=== PATIENT | female | born 1980 | race Caucasian/White ===

== ENCOUNTER 2019-12-30 02:45 | Emergency (ER) | payer BC, SELFPAY ==
--- NOTE | ~2019-12-30 | CT_ITS ---
EXAMINATION: CT abdomen pelvis w con DATE: 12/30/2019 04:07 INDICATION: Right upper quadrant abdominal pain TECHNIQUE: Computed tomography (CT) of the abdomen and pelvis was performed without intravenous contr ast. Automated exposure control and iterative reconstruction technique were employed. Exam dose: 977 .80 mGy-cm total exam DLP. COMPARISON: None. FINDINGS: The lung bases are clear of infiltrate or consolidation. Normal heart size. No pericardial or pleural effusion. No hepatic, splenic, pancreatic, adrenal space-occupying mass lesion. Very small lower pole right robbin al cyst. Otherwise no renal mass lesion. Gallbladder is present. There is mild gallbladder wall thickening. There are gallstones. Acute cholec ystitis is not excluded. No bile duct or pancreatic duct dilatation. Normal caliber of the abdominal aorta. No intraperitoneal or retroperitoneal or pelvic mass lesion or adenopathy or ascites. Normal appendix. No bowel obstruction, bowel wall thickening or pneumatosis. Uterine enlargement with multiple uterine fibroids. Multiple left ovarian cystic lesions measuring up to 2 cm. Consider pelvic ultrasound for further evaluation as clinically appropriate. IMPRESSION: Cholelithiasis and gallbladder wall thickening; consider acute cholecystitis. Radionucli de hepatobiliary scan may be helpful for further evaluation for acute cholecystitis if clinically david ropriate Uterine enlargement, uterine fibroids Multiple left ovarian cystic lesions measuring up to 2 cm; consider pelvic ultrasound as clinically a ppropriate Reviewed, dictated and finalized at [facility]. Reviewed, dictated and finalized at [facility]. IMPRESSION: Cholelithiasis and gallbladder wall thickening; consider acute cho lecystitis. Radionuclide hepatobiliary scan may be helpful for further evaluati on for acute cholecystitis if clinically appropriate Uterine enlargement, uterine fibroids Multiple left ovarian cystic lesions measuring up to 2 cm; consider pelvic ultr asound as clinically appropriate
[2019-12-30 02:51] VITALS: BP 147/113; PULSE 85; RESP 15; TEMP 36.2; O2SAT 100
[2019-12-30 03:06] LABS: Basophils Absolute Auto 0.1 K/mm3 (0.0-0.1); Basophils Percent Auto 0.6 % (0.2-1.2); Eosinophils Absolute Auto 0.1 K/mm3 (0-0.3); Eosinophils Percent Auto 1.5 % (0-4.4); Hematocrit 40.5 % (37.0-47.0); Hemoglobin 13.4 g/dL (12.0-15.0); Immature Granulocyte Absolute 0.02 K/mm3 (0.00-0.031); Immature Granulocyte Percent A 0.2 % (0-0.5); Lymphocytes Absolute Auto 1.65 K/mm3 (0.9-3.2); Lymphocytes Percent Auto 17.6 % (18.3-44.2); Mean Corpuscular HGB Conc 33.1 g/dl (32-36); Mean Corpuscular Hemoglobin 28.1 pg (26-34); Mean Corpuscular Volume 84.9 fl (80-100); Mean Platelet Volume 9.7 fl (7.4-10.4); Monocytes Absolute Auto 0.4 K/mm3 (0.1-0.6); Monocytes Percent Auto 4.5 % (2.6-8.5); Neutrophils Absolute Auto 7.1 K/mm3 (1.3-6.7); Neutrophils Percent Auto 75.6 % (45.5-73.1); Platelet Count Result 285 k/mm3 (150-375); Red Blood Count 4.77 M/mm3 (4.2-5.4); Red Cell Distribution Width 12.2 % (11.5-14.5); White Blood Count 9.4 K/mm3 (4.5-10.0)
--- NOTE | 2019-12-30 03:10 | ED.ABDPAIN ---
HPI - Abdominal Pain General Chief Complaint: Abdominal Pain Stated Complaint: RUQ pain Time Seen by Provider: 12/30/19 02:50 Source: RN notes reviewed History of Present Illness HPI narrative: Patient presents emergency department from home for abdominal pain. Patient states the pain began tonight. The pain is located in the epigastric and right upper quadrant described as sharp and stabbing. States associated nausea and vomiting. Patient denies having fevers or chills chest pain shortness of breath diarrhea or any other symptoms. States that she did take Tums at home with minimal relief. Related Data Allergies Allergy/AdvReac Type Severity Reaction Status Date / Time No Known Allergies Allergy Unknown Unverified 03/10/15 19:23 Review of Systems Review of Systems: Narrative: Gen.: Denies fevers or chills ENT: Denies congestion Respiratory: Denies shortness of breath or cough CV: Denies chest pain or palpitations GI: See HPI denies burning, urgency, frequency or hematuria Musculoskeletal: Denies back pain or muscle pain Neuro: Denies numbness, tingling, weakness or focal weakness Skin: Denies rash Except as documented, all other systems reviewed and negative [facility] Past Medical History Medical History (Updated 12/30/19 @ 05:03 by Moises Rowland DO) Patient denies significant medical history Social History Social History (Updated 12/30/19 @ 03:11 by Moises Rowland DO) Smoking status: Never smoker Exam Narrative: Exam Narrative: APPEARANCE: No acute distress, nontoxic, resting in bed HEENT: Normocephalic, atraumatic, OMM RESPIRATORY: No respiratory distress, clear to auscultation bilaterally with no rhonchi wheezing or rales CARDIOVASCULAR: RRR s murmur ABDOMINAL: Soft, nondistended, tender palpation epigastric and right upper quadrant, no tenderness left upper quadrant, left lower quadrant right lower quadrant, no rebound or guarding MUSCULOSKELETAl: Moves all extremities. No clubbing, cyanosis or edema. NEURO: Awake and alert. Following commands, speech normal, no focal deficits SKIN:: Warm, dry. Normal Color PSYCHIATRIC: Normal affect/mood Course Course Emergency Course: Patient states that they are feeling much better at this time. States abdominal pain has resolved. Repeat abdominal exam shows the patient's abdomen to be soft and nontender. Discussed with patient results of workup and diagnosis. Discussed need for follow-up with primary care physician, reasons to return to the emergency department in proper use of medication. Patient understands and agrees to current treatment plan. Discussed gallstones need for follow-up as an outpatient Vital Signs Vital signs: Vital Signs Temperature 97.2 F L 12/30/19 02:51 Pulse Rate 85 12/30/19 02:51 Respiratory Rate 15 12/30/19 02:51 Blood Pressure 147/113 H 12/30/19 02:51 Pulse Oximetry 100 12/30/19 02:51 Temperature 97.2 F L 12/30/19 02:51 Pulse Rate 85 12/30/19 02:51 Respiratory Rate 15 12/30/19 02:51 Blood Pressure 147/113 H 12/30/19 02:51 Pulse Oximetry 100 12/30/19 02:51 MDM - Abdominal Pain MDM Narrative Medical decision making narrative: Patient's abdomen is soft without significant pain or signs of surgical abdomen on serial exams. Lab and x-ray evaluations are reviewed and patient is felt to be a reasonable candidate for outpatient management. Patient was instructed as to limitations of x-ray and laboratory evaluation and encouraged to return to ED or primary physician for repeat exam in 12 hours if continued or worsening pain. Patient's pain is improved. White count is within normal limits with normal LFTs. At this time feel likely cholelithiasis with no signs of cholecystitis will discharge with plan for follow-up and strict return precautions Lab Data Result diagrams: 12/30/19 02:59 12/30/19 02:59 Labs: Lab Results 12/30/19 12/30/19 12/30/19 Range/Units 02:59 02:59 03:00
[2019-12-30 03:11] LABS: Add Urine Microscopic? YES; Appearance Urine Clear (Clear); Bacteria Urine Trace /hpf; Bilirubin Urine Negative (Negative); Blood Urine 1+ (Negative); Color Urine Yellow (Yellow); Glucose Urine UA Negative (Negative); Ketones Urine Negative (Negative); Leukocyte Esterase Ur Negative LEU/UL (Negative); Mucus Urine Rare /lpf; Nitrate Urine Negative (Negative); Protein Urine Negative (Negative); RBC Urine 0-2 /hpf (0-2); Specific Grav Ur 1.023 (1.001-1.035); Squamous Epithelial Cell Urine Occasional /hpf (Few); Urobilinogen Urine Negative mg/dL (<2.0); WBC Urine 0-3 /hpf
[2019-12-30 03:22] LABS: Alanine Aminotransferase 13 U/L (4-35); Albumin Level 4.2 g/dL (3.5-5.1); Alkaline Phosphatase 71 U/L (38-126); Aspartate Amino Transferase 17 U/L (14-36); Bilirubin,Total 0.2 mg/dL (0.2-1.3); Blood Urea Nitrogen 13 mg/dL (7-17); Calcium 9.5 mg/dL (8.4-10.2); Carbon Dioxide 25 mmol/L (22-30); Chloride 104 mmol/L (98-107); Estimated Glomerular Filt Rate > 60; Glucose 128 mg/dL (65-105); Lipase 115 U/L (23-300); Potassium 4.3 mmol/L (3.4-5.0); Sodium 138 mmol/L (137-145)
[2019-12-30] MEDS: KETOROLAC 30 MG/ML VIAL (*BKC) IV PUSH (03:24)
[2019-12-30] MEDS: ONDANSETRON INJ 4 MG/2 ML VIAL IV PUSH (03:24)
[2019-12-30] MEDS: SODIUM CHLORIDE 0.9% IV 1,000 ML 999 ML IV CONT (03:25)
[2019-12-30 04:00] VITALS: BP 133/78; PULSE 79; RESP 18; O2SAT 98
--- NOTE | 2019-12-30 05:15 | PC.NURSE ---
Upon d/c pt requesting pain medication before leaving. ERP notified. RN instructed to not d/c patient.
[2019-12-30 05:35] VITALS: BP 140/100; PULSE 88; RESP 19; O2SAT 98
--- NOTE | 2019-12-30 05:35 | PC.NURSE ---
Pt states she wants to go home and does not want pain medication. ERP notified and Rn informed to d/c pt.
== END 2019-12-30 05:35 | disposition home or self-care (01) ==
PROVIDERS: Emergency Provider Emergency Medicine; PCP Internal Medicine
DX: K80.20 Calculus of gallbladder without cholecystitis without obstruction (principal)
CPT/HCPCS: 36415; 74177; 80053; 81001; 81025; 83690; 85025; 96361; 96374; 96375; 99284; J1885; J2405; J7030; Q9967

== ENCOUNTER 2020-02-05 15:29 | Outpatient (CLI) | payer BC, SELFPAY ==
[2020-02-05 16:35] LABS: Amylase 57 U/L (30-110)
== END 2020-02-05 15:30 | disposition home or self-care (01) ==
PROVIDERS: PCP Internal Medicine; Visit Provider Surgery
DX: Z01.818 Encounter for other preprocedural examination (principal); K80.20 Calculus of gallbladder without cholecystitis without obstruction
CPT/HCPCS: 36415; 82150; 86850; 86900; 86901

== ENCOUNTER 2020-02-08 00:34 | Outpatient (CLI) | payer BC, SELFPAY ==
[2020-02-08 18:35] LABS: SARS-CoV-2 RNA PCR Negative
== END 2020-02-08 00:35 | disposition home or self-care (01) ==
LOC: ANHCOVIDDT 00:34
PROVIDERS: PCP Internal Medicine; Visit Provider Surgery
DX: Z01.812 Encounter for preprocedural laboratory examination (principal); Z20.828 Contact with and (suspected) exposure to other viral communicable diseases
CPT/HCPCS: 87635; C9803; U0003

== ENCOUNTER 2020-02-11 01:08 | Day surgery (SDC) | payer BC, SELFPAY ==
[2020-01-28 09:20] VITALS: BMI 31.3
[2020-02-11] VITALS (9 sets, daily range): BP systolic 128–146; BP diastolic 73–89; PULSE 60–91; RESP 12–14; TEMP 36.2–37.4; O2SAT 95–100
--- NOTE | 2020-02-11 11:41 | WPDHPUPDATE1 ---
History and Physical Update Update Date/Time: 02/11/20 11:41 History and Physical has been reviewed, including an updated exam of the patient. There are NO changes in the patient's condition. Risks, benefits, and alternatives have been discussed and questions answered. Patient agrees to proceed with procedure.
[2020-02-11] MEDS: LACTATED RINGERS 1,000 ML 30 ML IV CONT ×2 (12:37→14:04)
--- NOTE | 2020-02-11 12:39 | WPDANESEPPF ---
Anes - Initial Pre Proc Eval Procedure: Operation Date: 02/11/20 13:30 Proposed Procedures p Laparoscopic Cholecystectomy, Possible Open - Chi Leavitt DO Date/Time: 02/11/20 12:39 Surgeon: Chi Leavitt DO Pre Op Diagnosis: Symptomatic Cholelithiasis Patient Data Age: 39 Gender: F Height: 5 ft 9 in Weight: 96.16 kg Allergies Allergy/AdvReac Type Severity Reaction Status Date / Time No Known Allergies Allergy Unknown Verified 01/28/20 09:21 Home Medications Medication Instructions Recorded Confirmed Type ibuprofen [IBU] 600 mg PO Q6H PRN #20 tablet 12/30/19 02/11/20 Rx ondansetron 4 mg PO Q6H PRN #10 tablet 12/30/19 01/28/20 Rx liothyronine 50 mcg tablet 50 mcg PO DAILY 01/22/20 02/11/20 History metformin 500 mg tablet 500 mg PO 3XW 01/22/20 02/11/20 History desogestrel-ethinyl estradiol 1 tablet PO DAILY 01/28/20 02/11/20 History [Apri] Patient hx anesthesia problems: post op nausea/vomiting Family hx anesthesia problems: none PMFSH Social History Social History Smoking status: Former smoker Tobacco type: cigarettes Additional smoking assessment comments: QUIT 13 YEARS AGO. SMOKED OCCASIONALLY FOR 5 YEARS. 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 Questions were solicited and answers provided to the satisfaction of the patient/family/POA.
[2020-02-11] MEDS: ACETAMINOPHEN 500 MG TABLET 1000 MG PO (12:41)
[2020-02-11] MEDS: KETOROLAC 15 MG/ML VIAL (*BKC) IV PUSH (12:43)
[2020-02-11] MEDS: SCOPOLAMINE 1.5 MG PATCH TRANSDERM (12:46)
[2020-02-11] MEDS: ceFAZolin 2 GM/D5W 50 ML 2 GM/50 ML BAG IVPB (13:04)
[2020-02-11] MEDS: BUPIVACAINE/EPINEPHRINE 0.5% 30 ML VIAL INFILTRATE (13:29)
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
[2020-02-11] MEDS: ONDANSETRON INJ 4 MG/2 ML VIAL IV PUSH (14:35)
[2020-02-11] MEDS: FAMOTIDINE 20 MG/2 ML VIAL IV PUSH (15:03)
[2020-02-11] MEDS: HALOPERIDOL LACTATE 5 MG/ML VIAL 1 MG IV PUSH (15:43)
== END 2020-02-11 16:32 | disposition home or self-care (01) ==
PROVIDERS: PCP Internal Medicine; Visit Provider Surgery
PROC: 0FT44ZZ Resection of Gallbladder, Percutaneous Endoscopic Approach (ICD-10-PCS; CPT 47562; principal; 2020-02-11 13:30)
DX: K80.10 Calculus of gallbladder with chronic cholecystitis without obstruction (principal); Z87.891 Personal history of nicotine dependence
CPT/HCPCS: 47562; 88304; A9270; J0330; J0690; J1100; J1200; J1630; J1885; J2250; J2405; J2704; J2710; J3010; J7030; J7120

== ENCOUNTER 2020-09-10 14:46 | Outpatient (CLI) | payer BC, SELFPAY | END 2020-09-10 14:47 | disposition home or self-care (01) | LOC: ANHCOVIDVC 14:46 | PROVIDERS: PCP Internal Medicine | DX: Z23 Encounter for immunization (principal) | CPT/HCPCS: 0001A; 91300 ==

== ENCOUNTER 2020-10-01 14:45 | Outpatient (CLI) | payer BC, SELFPAY | END 2020-10-01 14:46 | disposition home or self-care (01) | LOC: ANHCOVIDVC 14:45 | PROVIDERS: PCP Internal Medicine | DX: Z23 Encounter for immunization (principal) | CPT/HCPCS: 0002A; 91300 ==

== ENCOUNTER 2021-06-29 00:09 | Day surgery (SDC) | payer BC, SELFPAY ==
[2021-06-17 11:28] VITALS: BMI 31.7
--- NOTE | 2021-06-19 10:12 | PM.HPGS ---
History of Present Illness History of Present Illness Consent: Risks, benefits, and alternatives have been discussed and questions answered. Patient agrees to proceed with procedure. Chief complaint: rectal bleeding Narrative: Sally Norris is a 40 year old female Who was referred because of bright red blood in her stool. She sees it after a bowel movement, often on toilet tissue. Also her sister had a colonoscopy and apparently had polyps removed Review of Systems Review of Systems: All systems reviewed & are unremarkable except as noted in HPI and below PMFSH Past Medical History Medical History Bronchitis Overweight Patient denies significant medical history Thyroid disease Surgical History Surgical History History of cholecystectomy History of LEEP (loop electrosurgical excision procedure) of cervix complicating Family History Family History Father Hyperlipemia Brain tumor (benign) Mother Non-Hodgkin lymphoma Unknown Heart disease Hypertension Cancer Social History Social History Smoking packs per day: 0.5 Smoking cigarettes per day: 10.0 Years smoked: 5 Smoking pack-years: 2.50 Smoking status: Former smoker Tobacco type: cigarettes Additional smoking assessment comments: QUIT 13 YEARS AGO. SMOKED OCCASIONALLY FOR 5 YEARS. 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 Spiritual care concerns: No Meds Home Medications and Allergies Home Medications Medication Instructions Recorded Confirmed Type liothyronine 50 mcg tablet 50 mcg PO DAILY 01/22/20 06/29/21 History metformin 500 mg tablet 500 mg PO 3XW 01/22/20 06/29/21 History desogestrel-ethinyl estradiol 1 tablet PO DAILY 01/28/20 06/29/21 History [Apri] Allergies Allergy/AdvReac Type Severity Reaction Status Date / Time No Known Allergies Allergy Unknown Verified 06/29/21 06:31 Exam Resp: Auscultation: clear to auscultation bilaterally Cardio: Rate: regular rate Rhythm: regular rhythm GI: GI Palp: Yes Soft to palpation and No Tenderness to palpation present (GI) Assessment and Plan Assessment and plan (1) Blood in stool: Code(s): K92.1 - Melena Status: Acute Assessment and Plan: Colonoscopy with possible biopsy or polypectomy or cautery or injection of substances.
[2021-06-29 06:34] VITALS: BP 141/86; PULSE 72; RESP 18; TEMP 36.2; O2SAT 99
[2021-06-29] MEDS: LACTATED RINGERS 1,000 ML 150 ML IV CONT (06:48)
[2021-06-29 06:49] LABS: Glucose Point of Care 99 mg/dl (65-105)
--- NOTE | 2021-06-29 06:52 | P.PNAN_ITS ---
Anes - Initial Pre Proc Eval Procedure: Operation Date: 06/29/21 07:30 Proposed Procedures p Colonoscopy - Derian Spangler MD Date/Time: 06/29/21 06:52 Surgeon: Derian Spangler MD Pre Op Diagnosis: rectal bleeding Patient Data Age: 40 Gender: F Height: 1.75 m Weight: 89.7 kg Last Vital Signs Temp 36.2 C L 06/29/21 06:34 Pulse 72 06/29/21 06:34 Resp 18 06/29/21 06:34 BP 141/86 H 06/29/21 06:34 Pulse Ox 99 06/29/21 06:34 Allergies Allergy/AdvReac Type Severity Reaction Status Date / Time No Known Allergies Allergy Unknown Verified 06/29/21 06:31 Home Medications Medication Instructions Recorded Confirmed Type liothyronine 50 mcg tablet 50 mcg PO DAILY 01/22/20 06/29/21 History metformin 500 mg tablet 500 mg PO 3XW 01/22/20 06/29/21 History desogestrel-ethinyl estradiol 1 tablet PO DAILY 01/28/20 06/29/21 History [Apri] Laboratory Tests 06/29/21 06:44 POC Capillary Glucose 99 mg/dl mg/dl (65-105) Patient hx anesthesia problems: none Family hx anesthesia problems: none Results Review: All pre-operative results and documents have been reviewed as part of the pre-operative evaluation. [facility] Past Medical History Medical History (Updated 06/29/21 @ 06:52 by Goldy Pruitt MD) Bronchitis Overweight Patient denies significant medical history Thyroid disease Surgical History Surgical History (Updated 06/29/21 @ 06:52 by Goldy Pruitt MD) History of cholecystectomy History of LEEP (loop electrosurgical excision procedure) of cervix complicating Family History Family History Father Hyperlipemia Brain tumor (benign) Mother Non-Hodgkin lymphoma Unknown Heart disease Hypertension Cancer Social History Social History Smoking packs per day: 0.5 Smoking cigarettes per day: 10.0 Years smoked: 5 Smoking pack-years: 2.50 Smoking status: Former smoker Tobacco type: cigarettes Additional smoking assessment comments: QUIT 13 YEARS AGO. SMOKED OCCASIONALLY FOR 5 YEARS. 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 Informed Consent: The patient's anesthetic plan and its attendant risks and benefits were discussed with the patient/family/POA. Questions were solicited and answers provided to the satisfaction of the patient/family/POA.
[2021-06-29 07:46] VITALS: BP 123/77; PULSE 79; RESP 19; O2SAT 100
[2021-06-29 07:56] VITALS: BP 131/68; PULSE 73; RESP 17; O2SAT 100
[2021-06-29 08:06] VITALS: BP 132/85; PULSE 69; RESP 20; O2SAT 100
== END 2021-06-29 08:18 | disposition home or self-care (01) ==
PROVIDERS: PCP Internal Medicine; Visit Provider Internal Medicine Gastroenterology
PROC: 0DJD8ZZ Inspection of Lower Intestinal Tract, Via Natural or Artificial Opening Endoscopic (ICD-10-PCS; CPT 45378; principal; 2021-06-29 07:30)
DX: K92.1 Melena (principal); K57.30 Diverticulosis of large intestine without perforation or abscess without bleeding; K64.8 Other hemorrhoids; E07.9 Disorder of thyroid, unspecified; Z79.84 Long term (current) use of oral hypoglycemic drugs; Z87.891 Personal history of nicotine dependence
CPT/HCPCS: 45378; 82948; J2704; J7120

== ENCOUNTER 2021-09-06 18:01 | Emergency (ER) | payer BC, SELFPAY ==
[2021-09-06 18:10] VITALS: BP 151/81; PULSE 99; RESP 18; TEMP 36.7; O2SAT 99
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
== END 2021-09-06 18:38 | disposition home or self-care (01) ==
PROVIDERS: Emergency Provider Nurse Practitioner; PCP Internal Medicine
DX: J40 Bronchitis, not specified as acute or chronic (principal); J06.9 Acute upper respiratory infection, unspecified; T59.811A Toxic effect of smoke, accidental (unintentional), initial encounter; Z87.891 Personal history of nicotine dependence; E07.9 Disorder of thyroid, unspecified
CPT/HCPCS: 99213; G0463

== ENCOUNTER 2022-04-02 15:20 | Emergency (ER) | payer BC, SELFPAY ==
--- NOTE | 2022-04-02 15:22 | ED.URI ---
HPI - URI/Sore Throat General Stated Complaint: Sore Throat,Rt Ear Irritation Time Seen by Provider: 04/02/22 15:22 Source: patient Mode of arrival: ambulatory Limitations: no limitations History of Present Illness HPI Narrative: Ms. Felipe is a 41-year-old female patient presenting to the clinic today with complaints of sore throat and right ear pain times 3 days. She reports her right ear and throat started hurting today but she has had nasal congestion for the past 3 days. Denies any fever or chills. She denies any known exposure to anybody with COVID, flu, or strep MD elicited complaint: sore throat Related Data Home Medications Medication Instructions Recorded Confirmed cetirizine 10 mg tablet (Zyrtec) 10 mg PO DAILY 09/06/21 09/06/21 levonorgestrel-ethinyl estradiol 1 tablet PO DAILY 09/06/21 09/06/21 0.1 mg-20 mcg tablet (Sronyx) liothyronine 50 mcg tablet mcg 04/02/22 metformin 500 mg tablet mg 04/02/22 Allergies Allergy/AdvReac Type Severity Reaction Status Date / Time No Known Allergies Allergy Unknown Verified 04/02/22 15:22 Review of Systems Review of Systems: Pertinent positives per HPI. Patient denies any fever, chills, rash, headache, visual changes, dizziness, cough, shortness of breath, chest pain, palpitations, nausea, vomiting, diarrhea, constipation, abdominal pain, or any urinary issues. PMFSH Past Medical History Medical History Bronchitis Overweight Patient denies significant medical history Thyroid disease Surgical History Surgical History History of cholecystectomy History of LEEP (loop electrosurgical excision procedure) of cervix complicating Family History Family History Father Hyperlipemia Brain tumor (benign) Mother Non-Hodgkin lymphoma Unknown Heart disease Hypertension Cancer Social History Social History Smoking packs per day: 0.5 Smoking cigarettes per day: 10.0 Years smoked: 5 Smoking pack-years: 2.50 Smoking status: Former smoker Tobacco type: cigarettes Additional smoking assessment comments: QUIT 13 YEARS AGO. SMOKED OCCASIONALLY FOR 5 YEARS. 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 There is no relevant family history pertinent to the patient complaint. Exam Narrative: General: Well-developed, well nourished, in no apparent distress Head: Normocephalic, atraumatic Eyes: Pupils equally round and reactive to light bilaterally, EOM intact, sclera and conjunctive clear, no discharge, lids normal Ears: Left TMs intact and clear, right TM, mild bulging, dull, canals clear, no drainage, grossly hearing normal. Nose: Nares patent, clear nasal discharge, moderate inflammation, no sinus tenderness. Mouth: Oral pharynx without lesions or masses, good dentition, MMM. Postnasal drip, oropharynx red Neck: Supple, trachea midline, enlargement of anterior cervical nodes, no thyroid masses or goiter palpable. Cardio: Regular rate and rhythm, s1 and s2 normal, no murmur appreciated. Resp: Clear to auscultation bilaterally, no rhonchi, rales, wheezing or rubs Course Course Emergency Course: Portions of this record may have been created with voice recognition software. Level of Care: Express Care Visit Vital Signs Vital signs: Vital signs reviewed MDM - URI/Sore Throat MDM Narrative Medical decision making narrative: At the time of visit patient is resting comfortably on the exam table. Strep screen
[2022-04-02 15:27] VITALS: BP 147/90; PULSE 96; RESP 18; TEMP 36.7; O2SAT 100
[2022-04-02 15:38] VITALS: BP 147/90; PULSE 96; RESP 18; TEMP 36.7; O2SAT 100
== END 2022-04-02 15:58 | disposition home or self-care (01) ==
PROVIDERS: Emergency Provider Nurse Practitioner Family
DX: R09.82 Postnasal drip (principal); J06.9 Acute upper respiratory infection, unspecified; H69.81 Other specified disorders of Eustachian tube, right ear; Z87.891 Personal history of nicotine dependence
CPT/HCPCS: 87081; 87880; 99213; G0463

== ENCOUNTER 2022-11-18 16:18 | Outpatient (CLI) | payer BC, SELFPAY ==
--- NOTE | ~2022-11-18 | MM_ITS ---
EXAMINATION: MM screening [facility] HISTORY: Screening mammogram TECHNIQUE: Craniocaudal and mediolateral oblique 3-D tomosynthesis images were obtained and synthetic 2-D images were generated. CAD analysis was submitted and interpreted. COMPARISON: None, baseline BREAST PARENCHYMAL COMPOSITION: There are scattered areas of fibroglandular density. FINDINGS: No suspicious mass, calcification, or architectural distortion are identified in either latonya ast to suggest malignancy. IMPRESSION: 1. No mammographic evidence of malignancy. 2. Recommend routine screening mammography in one year. BI-RADS Category 1: Negative Reviewed, dictated and finalized at location A.
== END 2022-11-18 16:19 | disposition home or self-care (01) ==
PROVIDERS: Visit Provider Obstetrics & Gynecology
DX: Z12.31 Encounter for screening mammogram for malignant neoplasm of breast (principal)
CPT/HCPCS: 77063; 77067

== ENCOUNTER 2024-06-25 08:24 | Emergency (ER) | payer OTHER, SELFPAY ==
--- NOTE | 2024-06-25 08:27 | ED_ITS ---
HPI - Ear Problem General Chief complaint: Ear Stated complaint: ear aching Time Seen by Provider: 06/25/24 08:27 Source: patient Mode of arrival: ambulatory Limitations: no limitations History of Present Illness HPI Narrative: Sally is a 43-year-old female patient presenting to the clinic today with complaints of ear pain, nasal congestion, and sinus pressure x2 days. She reports did an at-home COVID test last night was negative. Reports that the nasal drainage is green. Denies any chest pain or shortness of breath. States sinus pressure is an 8/10 currently. Has been taking Tylenol cold Sinus Related Data Home Medications ?Medication ?Instructions ?Recorded ?Confirmed ?Last Taken ?Type levonorgestrel-ethinyl estradiol 1 tablet PO DAILY 09/06/21 10/20/23 Unknown History 0.1 mg-20 mcg tablet (Sronyx) cholecalciferol (vitamin D3) 62.5 mcg PO 02/04/23 10/20/23 Unknown History mcg (2,500 unit) capsule mecobalamin (vitamin B12) 5,000 mcg PO 02/04/23 10/20/23 Unknown History mcg disintegrating tablet Allergies Allergy/AdvReac Type Severity Reaction Status Date / Time benzonatate (From Tessalon AdvReac Mild Itching Verified 06/25/24 08:39 Darren) Review of Systems Review of Systems: Pertinent positives per HPI. Patient denies any fever, chills, rash, visual changes, dizziness, cough, shortness of breath, chest pain, palpitations, nausea, vomiting, diarrhea, constipation, abdominal pain, or any urinary issues. [facility] Past Medical History Medical History Goiter Hearing loss Hyperinsulinemia Endometriosis Diverticulosis Hypothyroidism Thyroid disease Surgical History Surgical History History of laparoscopy x3 for endometriosis History of cholecystectomy 01/2020 History of LEEP (loop electrosurgical excision procedure) of cervix complicating Family History Family History Father Hyperlipemia Brain tumor (benign) Mother Non-Hodgkin lymphoma Unknown Heart disease Hypertension Cancer Social History Social History (Reviewed 06/25/24 @ 08:28 by NICOL Alcantara Smoking packs per day: 0.5 Smoking cigarettes per day: 10.0 Years smoked: 5 Smoking pack-years: 2.50 Smoking status: Former smoker Tobacco type: cigarettes Additional smoking assessment comments: QUIT 13 YEARS AGO. SMOKED OCCASIONALLY FOR 5 YEARS. 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 There is no relevant family history pertinent to the patient complaint. Exam Narrative: General: Well-developed, well nourished, in no apparent distress Head: Normocephalic, atraumatic Eyes: Pupils equally round and reactive to light bilaterally, EOM intact, sclera and conjunctive clear, no discharge, lids normal Ears: TMs intact and clear, ear canals clear, no drainage, grossly hearing normal. Nose: Nares patent, green nasal discharge, mild inflammation, maxillary sinus tenderness. Mouth: Oral pharynx without lesions or masses, good dentition, MMM. Neck: Supple, trachea midline, no enlargement of anterior or posterior cervical nodes, no thyroid masses or goiter palpable. Cardio: Regular rate and rhythm, s1 and s2 normal, no murmur appreciated. Resp: Clear to auscultation bilaterally, no rhonchi, rales, wheezing or rubs Course Course Emergency Course: Portions of this record may have been created with voice recognition software. Level of Care: Express Care Visit Vital Signs Vital signs: Vital Signs Temperature 36.3 C L 06/25/24 08:35 Pulse Rate 97 06/25/24 08:35 Respiratory Rate 18 06/25/24 08:35 Blood Pressure 116/80 06/25/24 08:35 Pulse Oximetry 100 06/25/24 08:35 Oxygen Delivery Room Air 06/25/24 08:35 Temperature 36.3 C L 06/25/24 08:35 Pulse Rate 97 06/25/24 08:35 Respiratory Rate 18 06/25/24 08:35 Blood Pressure 116/80 06/25/24 08:35 Pulse Oximetry 100 06/25/24 08:35 Oxygen Delivery Room Air 06/25/24 08:35 Vital signs reviewed Medical Decision Making MDM Narrative Medical decision making narrative: At the time of visit patient is resting comfortably on the exam table. Patient appears to be nontoxic. Plan: I suspect patient has URI. Will send in prescription for prednisone for or congestion and sinus pressure. Supportive measures were discussed with the patient and they voiced understanding discharge instructions and agrees to treatment plan. Return precautions reviewed Differential Diagnosis Differential Diagnosis: Otitis media, otitis externa, eustachian tube dysfunction, cerumen impaction, upper respiratory infection, serous otitis Vital Signs Vital Signs: Vital Signs Temperature 36.3 C L 06/25/24 08:35 Pulse Rate 97 06/25/24 08:35 Respiratory Rate 18 06/25/24 08:35 Blood Pressure 116/80 06/25/24 08:35 Pulse Oximetry 100 06/25/24 08:35 Oxygen Delivery Room Air 06/25/24 08:35 Temperature 36.3 C L 06/25/24 08:35 Pulse Rate 97 06/25/24 08:35 Respiratory Rate 18 06/25/24 08:35 Blood Pressure 116/80 06/25/24 08:35 Pulse Oximetry 100 06/25/24 08:35 Oxygen Delivery Room Air 06/25/24 08:35 Discharge Plan Discharge Clinical Impression: URI (upper respiratory infection) Qualifiers: URI type: unspecified viral URI Qualified Code(s): J06.9 - Acute upper resp iratory infection, unspecified Patient Disposition: Home, Self-Care Condition: Stable Instructions: Antibiotic Form, Cold Symptoms (ED) Additional Instructions: Take prescription medications only as prescribed-prednisone Increase fluids and stay well hydrated Tylenol/motrin for pain/fever Flonase and OTC antihistamines as directed Vicks vapor rub to open sinuses Sinus rinses for congestion Cepacol spray, cough drops, throat lozenges, warm tea with honey/lemon, gargle salt water to soothe throat BRAT diet for diarrhea Clear liquids x 24 hours then advance as tolerated for nausea/vomiting Go to the ED if you develop a worsening in your condition- high fever not controlled by Tylenol or Motrin, dehydration, weakness, lethargy, shortness of breath, or chest pain. Follow up with your PCP in 3-5 days if symptoms persist. Patient Language: Nepali Prescriptions: New prednisone 20 mg tablet 40 mg PO DAILY 5 Days Qty: 10 0RF No Action levonorgestrel-ethinyl estrad [Sronyx] 0.1-20 mg-mcg tablet 1 tablet PO DAILY metformin 500 mg tablet 500 mg PO BID Qty: 180 1RF cholecalciferol (vitamin D3) 62.5 mcg (2,500 unit) capsule PO mecobalamin (vitamin B12) 5,000 mcg tablet,disintegrating PO liothyronine 50 mcg tablet 50 mcg PO BID Qty: 180 0RF Follow-up/Referrals: Lorie Rice PA-C [Primary Care Provider] - Time of Disposition: 08:42 Quality NIHSS Nursing Documentation ED NIHSS nursing documentation: reviewed/agree
[2024-06-25 08:35] VITALS: BP 116/80; PULSE 97; RESP 18; TEMP 36.3; O2SAT 100
--- OUTSIDE RECORDS SUMMARY | 2024-07-02 13:30 | XMS_ITS | Encounter Summary ---
Author Organization [facility] Address [address] [place] [address]. [place] [address] [place] [address] Care Team Providers Care Dry House Wheeler Name Role Phone Unavailable Primary Care Provider Unavailabl e Encounter Details Date Type Department Care Team (Late st Contact Info) Description 12/26/2013 Abstract [facility] [address] [place] [address] Frida Du MD [address] [place] [address] Social History Tobacco Use Types Packs/Day Years Used Date Smoking Tobacco: Never Assessed Comments Unknown Sex and Gender Information Value Date Recorded Sex Assigned at Not on file Legal Sex Female 4:28 PM CDT Gender Identity Not on file Sexual Orientation Not on file documented as of this encounter Plan of Treatment Not on file documented as of this encounter Visit Diagnoses Diagnosis Routine general medical examination at a health care facility documented in this encounter
--- OUTSIDE RECORDS SUMMARY | 2024-07-02 13:30 | XMS_ITS | Clinical Summary ---
Author Organization [facility] Address [address] [place] [address]. [place], [place] [id number] [place] [address] Care Team Providers Care Weekend Receptionist Name Role Phone Unavailable Primary Care Provider Unavailabl e Social History Tobacco Use Types Packs/Day Years Used Date Smoking Tobacco: Never Assessed Comments Unknown Sex and Gender Information Value Date Recorded Sex Assigned at Not on file Legal Sex Female 4:28 PM CDT Gender Identity Not on file Sexual Orientation Not on file Plan of Treatment Health Maintenance Due Date Last Done Comments Cervical Cancer Screening Pa p Smear (Age 30 to 64) Every 3 Years 1979 Annual Physical 1982 Hepatitis C 1997 DTaP, Tdap and Td Vaccines ( 1 - Tdap) 1998 Hepatitis B Vaccines (1 of 3 - 19+ 3-dose series) 1998 Cervical Cancer Screening Pa p with HPV Testing (Age 30 to 64) Every 5 Years 2009 Cervical Cancer Screening with HPV 2009 Mammogram Screening 2019 COVID-19 Vaccine (2023-2 5 season) 2024 Influenza Adult (#1) 2024 HPV Vaccines Aged Out No longer eligi ble based on patient's age to complete this topic Meningococcal Vaccine Aged Out No suha jazzmine eligible based on patient's age to complete this topic Pneumococcal Vaccine: Pediat rics (0 to 5 Years) and At-Risk Patients (6 to 64 Years) Aged Out No longer eligible b ased on patient's age to complete this topic RSV Immunizations Under 20 Months Aged Out No longer eligible based on patient's age to complete this topic
--- OUTSIDE RECORDS SUMMARY | 2024-07-02 13:30 | XMS_ITS | Encounter Summary ---
Author Organization [facility] Address [address] [place] [address]. [place], [place] [address] [place] [address] Care Team Providers Care Test Engineering Intern Name Role Phone Unavailable Primary Care Provider Unavailabl e Encounter Details Date Type Department Care Team (Late st Contact Info) Description 08/08/2007 Abstract [facility] CONVERSION [address] [place], [place] [id number] [place] [address] [id number] Social History Tobacco Use Types Packs/Day Years Used Date Smoking Tobacco: Never Assessed Comments Unknown Sex and Gender Information Value Date Recorded Sex Assigned at Not on file Legal Sex Female 4:28 PM CDT Gender Identity Not on file Sexual Orientation Not on file documented as of this encounter Plan of Treatment Not on file documented as of this encounter Visit Diagnoses Not on filedocumented in this encounter
--- OUTSIDE RECORDS SUMMARY | 2024-07-02 13:30 | XMS_ITS | Encounter Summary ---
Author Organization [facility] Address [address] [place] [address]. [place], [place] [address] [place] [address] Care Team Providers Care Line Analyst Name Role Phone Unavailable Primary Care Provider Unavailabl e Encounter Details Date Type Department Care Team (Late st Contact Info) Description 09/04/2007 Abstract [facility] CONVERSION [address] [place], [place] [id number] Thaddeus Hamm MD [facility] [place], [place] [id number] Social History Tobacco Use Types Packs/Day Years [...]
--- OUTSIDE RECORDS SUMMARY | 2024-07-02 13:30 | XMS_ITS | Encounter Summary ---
Author Organization [facility] Address [address] [place] [address]. [place], [place] [address] [place] [address] Care Team Providers Care Piano Machine Operator Name Role Phone Unavailable Primary Care Provider Unavailabl e Encounter Details Date Type Department Care Team (Late st Contact Info) Description 02/11/2004 Abstract [facility] CONVERSION [address] [place], [place] [phone] Thaddeus Hamm MD [facility] [place], [place] [phone] Social History Tobacco Use Types Packs/Day Years [...]
--- OUTSIDE RECORDS SUMMARY | 2024-07-02 13:30 | XMS_ITS | Encounter Summary ---
Author Organization [facility] Address [address] [place] [address]. [place] [address] [place] [address] Care Team Providers Care Bell Hole Digger Name Role Phone Unavailable Primary Care Provider Unavailabl e Encounter Details Date Type Department Care Team (Late st Contact Info) Description 10/07/2010 Abstract [facility] Emergency Room [address] [place] [address] Henrry Padilla MD [address] [address] Social History Tobacco Use Types Packs/Day Years Used Date Smoking Tobacco: Never Assessed Comments Unknown Sex and Gender Information Value Date Recorded Sex Assigned at Not on file Legal Sex Female 4:28 PM CDT Gender Identity Not on file Sexual Orientation Not on file documented as of this encounter Plan of Treatment Not on file documented as of this encounter Visit Diagnoses Diagnosis Mittelschmerz documented in this encounter
--- OUTSIDE RECORDS SUMMARY | 2024-07-02 13:30 | XMS_ITS | Encounter Summary ---
Author Organization [facility] Address [address] [place] [address]. [place] [address] [place] [address] Care Team Providers Care Plastic Frame Inserter Name Role Phone Unavailable Primary Care Provider Unavailabl e Encounter Details Date Type Department Care Team (Late st Contact Info) Description 07/13/2014 Abstract [facility] Emergency Room [address] [place], [place] [phone] Susy Mann MD [address] [place] [address] Social History Tobacco Use Types Packs/Day Years Used Date Smoking Tobacco: Never Assessed Comments Unknown Sex and Gender Information Value Date Recorded Sex Assigned at Not on file Legal Sex Female 4:28 PM CDT Gender Identity Not on file Sexual Orientation Not on file documented as of this encounter Plan of Treatment Not on file documented as of this encounter Visit Diagnoses Diagnosis Urinary tract infection Urinary tract infection, site not specified documented in this encounter
--- OUTSIDE RECORDS SUMMARY | 2024-07-02 13:30 | XMS_ITS | Encounter Summary ---
Author Organization [facility] Address [address] [place] [address]. [place], [place] [address] [place] [address] Care Team Providers Care Engineer System Administrator Name Role Phone Unavailable Primary Care Provider Unavailabl e Encounter Details Date Type Department Care Team (Late st Contact Info) Description 08/05/2008 Abstract [facility] CONVERSION [address] [place], [place] [phone] Lorie Rice, HALLE [address] [place] [address] Social History Tobacco Use Types Packs/Day Years [...]
--- OUTSIDE RECORDS SUMMARY | 2024-07-02 13:31 | XMS_ITS | Encounter Summary ---
Author Organization [facility] Address [address] [place] [address] Care Team Providers Care Associate Entertainment Editor Name Role Phone No, Physician Primary Care Provider Reason for Visit * Diagnostic Imaging (Routine) - Closed Specialty Diagnoses / Procedures Referred By Contac t Referred To Contact Diagnoses Acute pain of left shoulder Procedures XR Shoulder Left 2 or More Views Wanda Mendoza, CARMENCITA [address] [facility] [address], [place] [address] Phone: tel: fax: [facility] [id number] [place] [phone] Referral ID Status Reason Start Date Expiration Date Visits Re quested Visits Authorized [id number] Closed 03/26/2024 04/25/2025 1 1 Encounter Details Date Type Department Care Team (Latest Contact Info) Description 03/26/2024 1:45 PM CDT Ancillary Procedure [facility] Imaging [address] [place] [address] Acute pain of left shoulder Social History Tobacco Use Types Packs/Day Years Used Date Smoking Tobacco: Never Smokeless Tobacco: Never Comments Unknown Sex and Gender Information Value Date Recorded Sex Assigned at Not on file Legal Sex Female 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 Gender Identity Not on file Sexual Orientation Not on file documented as of this encounter Plan of Treatment Not on file documented as of this encounter Procedures Procedure Name Priority Date/Time Associated Diagnosis Comments XR SHOULDER LEFT 2 OR MORE VIEWS Schedule Routine, Read Routine (OP Routine) 03/26/2024 2:02 PM CDT Acute pain of left shoulder documented in this encounter Results * XR Shoulder Left 2 or More Views (03/26/2024 2:02 PM CDT) Anatomical Region Laterality Modality Upper Extremities, Shoulder Left Comp uted Radiography 03/26/2024 2:41 PM CDT Impressions 03/26/2024 2:41 PM CDT Mild left acromioclavicular osteoarthritis. Electronically signed by: Man Marte M.D. Narrative 03/26/2024 2:41 PM CDT EXAMINATION: XR SHOULDER LEFT 2 OR MORE VIEWS HISTORY: shoulder pain, limited ROM COMPARISON: None available FINDINGS: Mild left acromioclavicular osteoarthritis. ??Normal left glenohumeral joint space. ??No acute fracture or subluxation. Procedure Note Man Marte MD - 03/26/2024 EXAMINATION: XR SHOULDER LEFT 2 OR MORE VIEWS HISTORY: shoulder pain, limited ROM COMPARISON: None available FINDINGS: Mild left acromioclavicular osteoarthritis. Normal left glenohumeral joint space. No acute fracture or subluxation. IMPRESSION: Mild left acromioclavicular osteoarthritis. Electronically signed by: Man Marte M.D. Wanda Mendoza WELLNESS SPA MANAGER IMG XR PROCEDURES Final Result documented in this encounter Visit Diagnoses Diagnosis Acute pain of left shoulder documented in this encounter Care Teams Associate Entertainment Editor Relationship Specialty Start Date End Date No, Physician PCP - General 03/26/24 documented as of this encounter
--- OUTSIDE RECORDS SUMMARY | 2024-07-02 13:31 | XMS_ITS | Encounter Summary ---
Author Organization [facility] Facility Care Team Providers Care School Standards Coach Name Role Phone Unavailable Primary Care Provider Unavailabl e Encounter Details Date Type Department Care Team (Late st Contact Info) Description 04/03/2013 - 04/03/2013 11:59 PM CDT Hospital Encounter [facility] Mendosa MD [address] [address] Nontoxic multinodular goiter Social History Tobacco Use Types Packs/Day Years Used Date Smoking Tobacco: Never Assessed Comments Unknown Sex and Gender Information Value Date Recorded Sex Assigned at Not on file 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 MARIPOSA CARSON FINAL REPORT The radiology attending physician has personally reviewed this study, and has reviewed and/or edited this written report and agrees with it. ACC# ??Date Time ??Exam [id number] Apr 03, 2013 10:19:00 [id number] Neck Ultrasound EXAMINATION: ?THYROID SONOGRAM HISTORY: 32-year-old female with multinodular goiter. FINDINGS: The thyroid is mildly enlarged in size. ??The right lobe measures 1.5 x 2.4 x 4.8 cm ??and the left lobe measures 1.7 x 1.9 x 4.7 cm. ??There are multiple nodules in both lobes of the thyroid. ??The largest on the right measures 3 x 4 x 5 mm and is located in the mid lobe. ??It is predominantly cystic with a small solid component. ??The largest on the left measures 6 x 10 x 11 mm and is located in the mid lobe. ??It is hypoechoic and is predominantly solid with a few internal echogenic foci. The borders are somewhat ill-defined. ??Other scattered nodules are present bilaterally. ?? IMPRESSION: 1. Indeterminate left mid thyroid nodule as described above. Conservative management would be by ultrasound followup in 6 months. A more aggressive approach by fine needle aspiration may also be considered. ?? Requested By: SOBIA FLORES M.D. Dictated By: ?? MARIPOSA CARSON ??on Mar ??2012 10:28A This document has been electronically signed by: NEIL VELASQUEZ M.D. on Apr 03 2013 10:30A Procedure Note Provider, MD Les - 10/30/2016 NEIL VELASQUEZ M.D. MARIPOSA CARSON FINAL REPORT The radiology attending physician has personally reviewed this study, and has reviewed and/or edited this written report and agrees with it. ACC# Date Time Exam [id number] Apr 03, 2013 10:19:00 [id number] Neck Ultrasound EXAMINATION: THYROID SONOGRAM HISTORY: 32-year-old female with multinodular goiter. FINDINGS: The thyroid is mildly enlarged in size. The right lobe measures 1.5 x 2.4 x 4.8 cm and the left lobe measures 1.7 x 1.9 x 4.7 cm. There are multiple nodules in both lobes of the thyroid. The largest on the right measures 3 x 4 x 5 mm and is located in the mid lobe. It is predominantly cystic with a small solid component. The largest on the left measures 6 x 10 x 11 mm and is located in the mid lobe. It is hypoechoic and is predominantly solid with a few internal echogenic foci. The borders are somewhat ill-defined. Other scattered nodules are present bilaterally. IMPRESSION: 1. Indeterminate left mid thyroid nodule as described above. Conservative management would be by ultrasound followup in 6 months. A more aggressive approach by fine needle aspiration may also be considered. Requested By: SOBIA FLORES M.D. Dictated By: MARIPOSA CARSON on Apr 03 2013 10:28A This document has been electronically signed by: NEIL VELASQUEZ M.D. on Apr 03 2013 10:30A us Historical Provider MD [facility] US PROCEDURES Final R esult documented in this encounter Visit Diagnoses Diagnosis Nontoxic multinodular goiter documented in this encounter
--- OUTSIDE RECORDS SUMMARY | 2024-07-02 13:31 | XMS_ITS | Clinical Summary ---
Author Organization [facility] [address] [address] Address [address] [place] [address] Care Team Providers Care Tire Building Supervisor Name Role Phone No, Physician Primary Care Provider [phone] Allergies No known active allergies Medications thyroid (ARMOUR THYROID) 90 mg tablet Take 1 tablet (90 mg total) by mouth daily Active metFORMIN (GLUCOPHAGE) 500 mg tablet Take 1 tablet (500 mg total) by mouth 2 (two) times a day with meals Active cyclobenzaprine (FLEXERIL) 5 mg tabletIndication s:Acute pain of left shoulder Take 1 tablet (5 mg total) by mouth 3 (three) times a day as needed for muscle spasms 30 tablet 03/26/2024 Active Active Problems Problem Noted Date Diagnosed Date Chronic infection of sinus 01/22/2013 Endometriosis 12/01/2012 Overview (10/07/2017): Description: abdominal, diaphragmatic Non-toxic multinodular goiter 12/01/2012 Fatigue 12/01/2012 Abnormal weight gain 12/01/2012 Surgical History Surgery Date Site/Laterality Comments [place] EXPLORATORY LAPAROTOMY CELIOTOMY W/WO BIOPSY SPX Exploratory Laparotomy - endometriosis (Added by TW Conv) CHOLECYSTECTOMY 2019 Medical History Medical History Date Comments Chronic sinusitis Sinusitis - re current (Added by TW Conv) Hypothyroidism Endometriosis Family History Medical History Relation Name Comments Cancer Other Cancer - mother at age 54 (Added by TW Conv) Heart disease Other Heart Disease - paternal grandparents and maternal grandparents (Added by TW Conv) Hypertension Other Hypertension - paternal grandparents and maternal grandparents (Added by TW Conv) Thyroid disease Other Thyroid Diso rder - maternal grandmother - hypothyroidism (Added by TW Conv) Relation Name Status Comments Other Social History Tobacco Use Types Packs/Day Years Used Date Smoking Tobacco: Never Smokeless Tobacco: Never Tobacco Cessation:Counseling Given: Not Answered Comments Unknown Sex and Gender Information Value Date Recorded Sex Assigned at Not on file 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 Gender Identity Not on file Sexual Orientation Not on file Obstetrics History Last Filed Vital Signs Vital Sign Reading Time Taken Comments Blood Pressure 118/87 03/26/2024 1:14 PM CDT Pulse 83 03/26/2024 1:14 PM CDT Temperature - - Respiratory Rate 18 03/26/2024 1:14 PM CDT Oxygen Saturation 98% 03/26/2024 1:14 PM CDT Inhaled Oxygen Concentration - - Weight 106.5 kg (234 lb 12.8 oz) 03/26/2024 1:14 PM CDT Height 174.6 cm (5' 8.75 ) 01/22/2013 8:36 AM CD T Body Mass Index - - Plan of Treatment Health Maintenance Due Date Last Done Comments Breast Cancer Screening-Mammogram 1979 Cervical Cancer Screening 1979 Depression Screening 1979 Hepatitis C Screening 1979 DTaP/Tdap/Td Vaccine (1 - Tdap) 1990 Varicella Vaccines (1 of 2 - 13+ 2-dose series) 1992 Hepatitis B Screening 1997 Regular Well Visit/Exam 18-64 1997 Covid-19 Vaccine (3 - 2023-2 5 season) 2024 10/01/2020, 09/10/2020 Influenza Vaccine (#1) 2024 HPV Vaccines Aged Out No longer eligi ble based on patient's age to complete this topic Pneumococcal vaccine <65 Aged Out No longer eligible based on patient's age to complete [place] [address] [employer]IG[employer] C[employer] Care Teams Tire Building Supervisor Relationship Specialty Start Date End Date No, Physician PCP - General 03/26/24
--- OUTSIDE RECORDS SUMMARY | 2024-07-02 13:31 | XMS_ITS | Encounter Summary ---
Author Organization 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 RUTH DOMINGUEZ M.D. FINAL REPORT The radiology attending physician has personally reviewed this study, and has reviewed and/or edited this written report and agrees with it. ACC# ??Date Time ??Exam [id number] Feb 19, 2013 08:11:[id number] Maxillofacial w/o cont EXAMINATION: ?Maxillofacial CT scan without contrast. HISTORY: ??Chronic sinusitis. TECHNIQUE: Noncontrast high resolution CT of the maxillofacial region was performed in the axial plane. Sagittal and coronal reconstructions were performed by the technologist and sent to the workstation for review. Comparison: ??None available. FINDINGS: The airway is normal. ??Within the maxilla and midface, no areas of bony erosion or fractures are identified. ?? The frontal sinuses are normal. The ethmoid sinuses are normal. The maxillary sinuses are normal. Minimal mucosal thickening is seen in the left sphenoid sinus. The right sphenoid sinus is clear. The osteomeatal units are open bilaterally. The nasal septum is at midline.. The mandible is normal without fractures. The orbits are normal. Limited view of the frontal lobes is normal. The limited views of the base of the skull and the temporal bones are normal. Limited views show that the cervical spine is in the normal anatomic alignment. Visualized vertebral bodies are normal height without compression fractures. The craniocervical junction is normal. IMPRESSION: ?? 1. Minimal mucosal thickening in left sphenoid sinus. Otherwise normal maxillofacial CT exam. Requested By: SANJAY YOUNG M.D. Dictated By: ?? RUTH DOMINGUEZ M.D. ??on Feb 19 2013 11:05A This document has been electronically signed by: SALLY GARCIA M.D. on Feb 19 2013 ??1:03P Procedure Note Provider, MD Les - 10/30/2016 Nikhil ARCE M.D. FINAL REPORT The radiology attending physician has personally reviewed this study, and has reviewed and/or edited this written report and agrees with it. ACC# Date Time Exam [id number] Feb 19, 2013 08:11:[id number] Maxillofacial w/o cont EXAMINATION: Maxillofacial CT scan without contrast. HISTORY: Chronic sinusitis. TECHNIQUE: Noncontrast high resolution CT of the maxillofacial region was performed in the axial plane. Sagittal and coronal reconstructions were performed by the technologist and sent to the workstation for review. Comparison: None available. FINDINGS: The airway is normal. Within the maxilla and midface, no areas of bony erosion or fractures are identified. The frontal sinuses are normal. The ethmoid sinuses are normal. The maxillary sinuses are normal. Minimal mucosal thickening is seen in the left sphenoid sinus. The right sphenoid sinus is clear. The osteomeatal units are open bilaterally. The nasal septum is at midline.. The mandible is normal without fractures. The orbits are normal. Limited view of the frontal lobes is normal. The limited views of the base of the skull and the temporal bones are normal. Limited views show that the cervical spine is in the normal anatomic alignment. Visualized vertebral bodies are normal height without compression fractures. The craniocervical junction is normal. IMPRESSION: 1. Minimal mucosal thickening in left sphenoid sinus. Otherwise normal maxillofacial CT exam. Requested By: SANJAY YOUNG M.D. Dictated By: RUTH DOMINGUEZ M.D. on Feb 19 2013 11:05A This document has been electronically signed by: SALLY GARCIA M.D. on Feb 19 2013 1:03P us Historical Provider MD [facility] CT PROCEDURES Final R esult documented in this encounter Visit Diagnoses Diagnosis Chronic sinusitis Unspecified sinusitis (chronic) documented in this encounter
--- OUTSIDE RECORDS SUMMARY | 2024-07-02 13:31 | XMS_ITS | Encounter Summary ---
Author Organization [facility] Address [address] [place] [address] Care Team Providers Care Lamp Shades Supervisor Name Role Phone No, Physician Primary Care Provider [phone] Reason for Referral * Diagnostic Imaging (Routine) - Closed Specialty Diagnoses / Procedures Referred By Contmelquiades t Referred To Contact Diagnoses Acute pain of left shoulder Procedures XR Shoulder Left 2 or More Views Wanda Mendoza NP [address] [facility] [facility] [address], [place] [address] Phone: tel: fax: [facility] - [address] [address] Referral ID Status Reason Start Date Expiration Date Visits Re quested Visits Authorized [id number] Closed 03/26/2024 04/25/2025 1 1 Reason for Visit * Reason Comments Shoulder Pain Left shoulder pain, pain started yesterday, no prior injury, difficulty lifting, pain scale (10) with movement Encounter Details Date Type Department Care Team (Late st Contact Info) Description 03/26/2024 1:00 PM CDT Office Visit [facility] at [address] [place] [address] [place] [address] Wanda Mendoza NP [address] [facility] [address] [place] [address] Acute pain of left shoulder (Primary Dx) Social History Tobacco Use Types Packs/Day Years Used Date Smoking Tobacco: Never Smokeless Tobacco: Never Tobacco Cessation:Counseling Given: Not Answered Comments Unknown Sex and Gender Information Value Date Recorded Sex Assigned at Not on file 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 Gender Identity Not on file Sexual Orientation Not on file documented as of this encounter Last Filed Vital Signs Vital Sign Reading Time Taken Comments Blood Pressure 118/87 03/26/2024 1:14 PM CDT Pulse 83 03/26/2024 1:14 PM CDT Temperature - - Respiratory Rate 18 03/26/2024 1:14 PM CDT Oxygen Saturation 98% 03/26/2024 1:14 PM CDT Inhaled Oxygen Concentration - - Weight 106.5 kg (234 lb 12.8 oz) 03/26/2024 1:14 PM CDT Height - - Body Mass Index - - documented in this encounter Ordered Prescriptions Prescription Sig Dispense Quantity Refills Last Filled Start Date End Date cyclobenzaprine (FLEXERIL) 5 mg tabletIndications: Acute pain of left shoulder Take 1 tablet (5 mg total) by mouth 3 (three) times a day as needed for muscle spasms 30 tablet 03/26/2024 methylPREDNISolone (MEDROL DOSEPACK) 4 mg DosepackIndication s:Acute pain of left shoulder Take as directed on package. 21 tablet 03/26/2024 4 documented in this encounter Progress Notes * Wanda Mendoza NP - 03/26/2024 1:00 PM CDT Images from the original note were not included. Patient ID: Sally Norris is a 43 y.o. female Chief Complaint Patient presents with Shoulder Pain Left shoulder pain, pain started yesterday, no prior injury, difficulty lifting, pain scale (10) with movement HPI: Going to chiropractor. Thought that she had R shoulder tendinitis as well as elbow. Left shoulder pain-she reports that she had been lifting grandchildren. Had been vaccuuming her home. No other known reasoning for exacerbation. She reports limited ROM. Spouse had to wash house. She reports that she had been moving concrete over the summer, but this pain is significantly worse. Shoulder Pain The pain is present in the left shoulder. This is a new problem. The current episode started yesterday. There has been no history of extremity trauma. The problem occurs constantly. The pain is at a severity of 10/10. Associated symptoms include an inability to bear weight, joint swelling (with some warmth, into the upper brachial region) and a limited range of motion. Pertinent negatives includeno numbness or tingling. The symptoms are aggravated by activity. She has tried NSAIDS (aleve 3 at bedtime last night, 2 tabs this am) for the symptoms. The treatment provided no relief. Patient Active Problem List Diagnosis Endometriosis Non-toxic multinodular goiter Fatigue Abnormal weight gain Chronic infection of sinus No Known Allergies Current Outpatient Medications on File Prior to Visit Medication Sig Dispense Refill metFORMIN (GLUCOPHAGE) 500 mg tablet Take 1 tablet (500 mg total) by mouth 2 (two) times a day withmeals thyroid (ARMOUR THYROID) 90 mg tablet Take 1 tablet (90 mg total) by mouth daily No current facility-administered medications on file prior to visit. Review of Systems Musculoskeletal: Positive for arthralgias and joint swelling. Neurological: Negative for tingling and numbness. All other systems reviewed and are negative. Vitals BP 118/87 (BP Location: Right arm, Patient Position: Sitting) Pulse 83 Resp 18 Wt 106.5 kg (234 lb 12.8 oz) SpO2 98% Physical Exam Vitals reviewed. Constitutional: General: She is awake. She is not in acute distress. Appearance: Normal appearance. She is well-developed. Cardiovascular: Rate and Rhythm: Normal rate and regular rhythm. Heart sounds: Normal heart sounds. Pulmonary: Effort: Pulmonary effort is normal. Breath sounds: Normal breath sounds. Musculoskeletal: Arms: Neurological: Mental Status: She is alert and oriented to person, place, and time. Psychiatric: Behavior: Behavior is cooperative. Assessment/Plan Diagnoses and all orders for this visit: Acute pain of left shoulder (Primary) - methylPREDNISolone (MEDROL DOSEPACK) 4 mg Dosepack; Take as directed on package. - cyclobenzaprine (FLEXERIL) 5 mg tablet; Take 1 tablet (5 mg total) by mouth 3 (three) times a dayas needed for muscle spasms - XR Shoulder Left 2 or More Views; Future Strongly suspicious for bursitis, although RTC could be culprit. As needed, may follow-up with ortho for management Will start medrol as she has not had improvement with aleve 660 and 440. Also, due to spasm, will start on flexeril as there is most likely some component of cervical/trap spasm causing this. Dr. Reyes, who has offices in [place] and [place] may be an option [phone] Con't ice/heat rotation [facility] [place] documented in this encounter Plan of Treatment Not on file documented as of this encounter Results * XR Shoulder Left [...] signed by: Man Marte M.D. Wanda Mendoza COFFEE GRINDER IMG XR PROCEDURES Final Result documented in this encounter Visit Diagnoses Diagnosis Acute pain of left shoulder- Primary Acute pain of left shoulder documented in this encounter Historical Medications * This list may reflect changes made after this encounter. metFORMIN (GLUCOPHAGE) 500 mg tablet Take 1 tablet (500 mg total) by mouth 2 (two) times a day with meals thyroid (ARMOUR THYROID) 90 mg tablet Take 1 tablet (90 mg total) by mouth daily added in this encounter Care Teams Lamp Shades Supervisor Relationship Specialty Start Date End Date No, Physician PCP - General 03/26/24 documented as of this encounter
--- OUTSIDE RECORDS SUMMARY | 2024-07-02 13:31 | XMS_ITS | Referral Summary ---
Author Organization [facility] [address] [employer] Address [address] [place] [address] Care Team Providers Care Air Support Control Officer Name Role Phone No, Physician Primary Care Provider [phone] Allergies No known active allergies Medications thyroid [...] 12/01/2012 Fatigue 12/01/2012 Abnormal weight gain 12/01/2012 Social History Tobacco Use Types Packs/Day Years Used Date Smoking Tobacco: Never Smokeless Tobacco: Never Tobacco Cessation:Counseling Given: Not Answered Comments Unknown Sex and Gender Information Value Date Recorded Sex Assigned at Not on file 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
--- OUTSIDE RECORDS SUMMARY | 2024-07-02 13:56 | XMS_ITS | Clinical Summary ---
Author Organization [facility] Address [address] [place] [address]. [place], [place] [address] [place] [address] Care Team Providers Care Wool Batting Worker Name Role Phone Unavailable Primary Care Provider [...]
--- OUTSIDE RECORDS SUMMARY | 2024-07-02 13:56 | XMS_ITS | Encounter Summary ---
Author Organization [facility] Address [address] [place] [address]. [place] [address] [place] [address] Care Team Providers Care Filenet P8 Developer Name Role Phone Unavailable Primary Care Provider Unavailabl e Encounter Details Date Type Department Care Team (Late st Contact Info) Description 12/26/2013 Abstract [facility] [address] [place] [address] Frida Du MD [address] [place] [address] Social History Tobacco Use Types Packs/Day Years [...]
--- OUTSIDE RECORDS SUMMARY | 2024-07-02 13:56 | XMS_ITS | Encounter Summary ---
Author Organization [facility] Address [address] [place] [address]. [place] [address] [place] [address] Care Team Providers Care Sock Knitting Machine Operator Name Role Phone Unavailable Primary Care Provider Unavailabl e Encounter Details Date Type Department Care Team (Late st Contact Info) Description 10/07/2010 Abstract [facility] Emergency Room [address] [place] [address] Henrry Padilla MD [address] [address] Social History Tobacco Use Types [...]
--- OUTSIDE RECORDS SUMMARY | 2024-07-02 13:56 | XMS_ITS | Encounter Summary ---
Author Organization [facility] Address [address] [place] [address]. [place] [address] [place] [address] Care Team Providers Care Middle School Art Teacher Name Role Phone Unavailable Primary Care Provider Unavailabl e Encounter Details Date Type Department Care Team (Late st Contact Info) Description 07/13/2014 Abstract [facility] Emergency Room [address] [place], [place] [id number] Susy Mann MD [address] [place] [address] Social History Tobacco Use Types [...]
--- OUTSIDE RECORDS SUMMARY | 2024-07-02 13:56 | XMS_ITS | Encounter Summary ---
Author Organization [facility] Address [address] [place] [address]. [place], [place] [address] [place] [address] Care Team Providers Care Spray Mixer Name Role Phone Unavailable Primary Care Provider Unavailabl e Encounter Details Date Type Department Care Team (Late st Contact Info) Description 08/05/2008 Abstract [facility] CONVERSION [address] [place], [place] [id number] Lorie Rice, HALLE [address] [place] [address] Social History Tobacco Use Types [...]
--- OUTSIDE RECORDS SUMMARY | 2024-07-02 13:56 | XMS_ITS | Encounter Summary ---
Author Organization [facility] Address [address] [place] [address]. [place], [place] [address] [place] [address] Care Team Providers Care Shoe Reconditioner Name Role Phone Unavailable Primary Care Provider Unavailabl e Encounter Details Date Type Department Care Team (Late st Contact Info) Description 09/04/2007 Abstract [facility] CONVERSION [address] [place], [place] [id number] Thaddeus Hamm MD [facility] [place], [place] [id number] Social History Tobacco Use Types Packs/Day Years [...]
--- OUTSIDE RECORDS SUMMARY | 2024-07-02 13:57 | XMS_ITS | Encounter Summary ---
Author Organization [facility] Healthcare Address [address] [place] [address] Care Team Providers Care Smeller Name Role Phone No, Physician Primary Care Provider [phone] Reason for Referral * Diagnostic Imaging (Routine) - Closed Specialty Diagnoses / Procedures Referred By Contmelquiades t Referred To Contact Diagnoses Acute pain of left shoulder Procedures XR Shoulder Left 2 or More Views Wanda Mendoza NP [address] [facility] [address], [place] [address] Phone: tel: fax: [facility] - [address] [address] Referral ID Status Reason Start Date Expiration Date Visits Re quested Visits Authorized [id number] Closed 03/26/2024 04/25/2025 1 1 Reason for Visit * Reason Comments Shoulder Pain Left shoulder pain, pain started yesterday, no prior injury, difficulty lifting, pain scale (10) with movement Encounter Details Date Type Department Care Team (Late st Contact Info) Description 03/26/2024 1:00 PM CDT Office Visit [facility] at [address] [place] [address] [place] [address] Wanda Mendoza NP [address] [facility] [address] [place] [address] Acute pain of left shoulder (Primary Dx) Social History Tobacco Use Types Packs/Day Years Used Date Smoking Tobacco: Never Smokeless Tobacco: Never Tobacco Cessation:Counseling Given: Not Answered Comments Unknown Sex and Gender Information Value Date Recorded Sex Assigned at Not on file Legal Sex Female 4:46 AM 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 Dr. Reyes, who has offices in [place] and [place] may be an option [phone] Con't ice/heat rotation [facility] [place] documented in this encounter Plan of Treatment [...] signed by: Man Marte M.D. Wanda Mendoza SOFTWARE PROJECT LEAD IMG XR PROCEDURES Final Result documented in [...] daily added in this encounter Care Teams Smeller Relationship Specialty Start Date End Date No, Physician PCP - General 03/26/24 documented as of this encounter
--- OUTSIDE RECORDS SUMMARY | 2024-07-02 13:57 | XMS_ITS | Encounter Summary ---
Author Organization 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 ACC# ??Date Time ??Exam [id number] Apr 03, 2013 10:19:00 [id number] Neck Ultrasound EXAMINATION: ?THYROID SONOGRAM HISTORY: 32-year-old [...] agrees with it. ACC# Date Time Exam [id number] Apr 03, 2013 10:19:00 31400 Neck Ultrasound EXAMINATION: THYROID SONOGRAM HISTORY: 32-year-old [...]
--- OUTSIDE RECORDS SUMMARY | 2024-07-02 13:57 | XMS_ITS | Encounter Summary ---
Author Organization [facility] Healthcare Address [address] [place] [address] Care Team Providers Care Gamb Cutter Name Role Phone No, Physician Primary Care Provider [phone] Reason for Visit * Diagnostic Imaging (Routine) - Closed Specialty Diagnoses / Procedures Referred By Contac t Referred To Contact Diagnoses Acute pain of left shoulder Procedures XR Shoulder Left 2 or More Views Wanda Mendoza, CARMENCITA [address] [facility] [address], [place] [address] Phone: tel: fax: [facility] [id number] [place] [phone] Referral ID Status Reason Start Date Expiration Date Visits Re quested Visits Authorized [id number] Closed 03/26/2024 04/25/2025 1 1 Encounter Details Date Type Department Care Team (Latest Contact Info) Description 03/26/2024 1:45 PM CDT Ancillary Procedure [facility] [address] [place] [address] Acute pain of left shoulder Social History Tobacco Use Types Packs/Day Years Used Date Smoking Tobacco: Never Smokeless Tobacco: Never Comments Unknown Sex and Gender Information Value Date Recorded Sex Assigned at Not on file Legal Sex Female 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 Wanda Mendoza WEED THINNER IMG XR PROCEDURES Final Result documented in this encounter Visit Diagnoses Diagnosis Acute pain of left shoulder documented in this encounter Care Teams Gamb Cutter Relationship Specialty Start Date End Date No, Physician PCP - General 03/26/24 documented as of this encounter
--- OUTSIDE RECORDS SUMMARY | 2024-07-02 13:57 | XMS_ITS | Referral Summary ---
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
--- OUTSIDE RECORDS SUMMARY | 2024-07-02 13:57 | XMS_ITS | Encounter Summary ---
Author Organization [facility] Address [address] [place] [address]. [place], [place] [address] [place] [address] Care Team Providers Care Water Chaser Name Role Phone Unavailable Primary Care Provider Unavailabl e Encounter Details Date Type Department Care Team (Late st Contact Info) Description 02/11/2004 Abstract [facility] CONVERSION [address] [place], [place] [id number] Thaddeus Hamm MD [facility] [place], [place] [id number] Social History Tobacco Use Types Packs/Day Years [...]
--- OUTSIDE RECORDS SUMMARY | 2024-07-02 13:57 | XMS_ITS | Encounter Summary ---
Author Organization [facility] Facility Care Team Providers Care Radiographer Technologist Name Role Phone Unavailable Primary Care Provider Unavailabl e Encounter Details Date Type Department Care Team (Late st Contact Info) Description 02/19/2013 - 02/19/2013 11:59 PM CDT Hospital Encounter [facility] CL[facility]CON[facility]jay Mix MD [address] [place] [address] Chronic sinusitis Social History Tobacco Use Types Packs/Day Years Used Date Smoking Tobacco: Never Assessed Comments Unknown Sex and Gender Information Value Date Recorded Sex Assigned at Not on file 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 RUTH DOMNIGUEZ M.D. FINAL REPORT The radiology attending physician has personally reviewed this study, and has reviewed and/or edited this written report and agrees with it. ACC# ??Date Time ??Exam [id number] Feb 19, 2013 08:11:[address] Maxillofacial w/o cont EXAMINATION: ?Maxillofacial CT [...] agrees with it. ACC# Date Time Exam [id number] Feb 19, 2013 08:11:[address] Maxillofacial w/o cont EXAMINATION: Maxillofacial CT [...]
--- OUTSIDE RECORDS SUMMARY | 2024-07-02 13:57 | XMS_ITS | Clinical Summary ---
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
--- OUTSIDE RECORDS SUMMARY | 2024-07-02 13:57 | XMS_ITS | Encounter Summary ---
Author Organization [facility] Address [address] [place] [address]. [place], [place] [address] [place] [address] Care Team Providers Care Double End Chucking Machine Operator Name Role Phone Unavailable Primary Care Provider Unavailabl e Encounter Details Date Type Department Care Team (Late st Contact Info) Description 08/08/2007 Abstract [facility] CONVERSION [address] [place], [place] [id number] [place] [address] [id number] Social History Tobacco Use Types Packs/Day Years [...]
== END 2024-06-25 08:47 | disposition home or self-care (01) ==
PROVIDERS: Emergency Provider Nurse Practitioner Family; PCP Physician Assistant Medical
DX: J06.9 Acute upper respiratory infection, unspecified (principal); Z87.891 Personal history of nicotine dependence; E03.9 Hypothyroidism, unspecified; N80.9 Endometriosis, unspecified; E04.9 Nontoxic goiter, unspecified
CPT/HCPCS: 99213; G0463

== ENCOUNTER 2024-07-18 08:30 | Outpatient (CLI) | payer SELFPAY ==
--- NOTE | ~2024-07-18 | MM_ITS ---
EXAMINATION: MM screening [facility] HISTORY: Screening TECHNIQUE: Craniocaudal and mediolateral oblique 3-D tomosynthesis images were obtained and synthetic 2-D images were generated. CAD analysis was submitted and interpreted. COMPARISON: 11/18/2022 BREAST PARENCHYMAL COMPOSITION: Not dense: There are scattered areas of fibroglandular density. FINDINGS: There is no evidence of suspicious mass, calcification, or architectural distortion to sugg est malignancy in either breast. There has been no suspicious interval change. IMPRESSION: 1. No mammographic evidence of malignancy. 2. Recommend routine screening mammography in one year. BI-RADS Category 1: Negative Reviewed, dictated and finalized at location A. NG STRAP CLOSER
--- OUTSIDE RECORDS SUMMARY | 2024-07-19 21:52 | XMS_ITS | Clinical Summary ---
Author Organization [facility] Address [address] [place] [address]. [place], [place] [address] [place] [address] Care Team Providers Care Health Consultant Name Role Phone Unavailable Primary Care Provider [...]
--- OUTSIDE RECORDS SUMMARY | 2024-07-19 21:52 | XMS_ITS | Referral Summary ---
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
--- OUTSIDE RECORDS SUMMARY | 2024-07-19 21:52 | XMS_ITS | Clinical Summary ---
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
== END 2024-07-18 08:31 | disposition home or self-care (01) ==
LOC: ANHIMG 08:33
PROVIDERS: PCP Physician Assistant Medical; Visit Provider Obstetrics & Gynecology
DX: Z12.31 Encounter for screening mammogram for malignant neoplasm of breast (principal)
CPT/HCPCS: 77063; 77067

== ENCOUNTER 2024-10-10 00:05 | Day surgery (SDC) | payer BC, SELFPAY ==
[2024-10-05 09:20] VITALS: BMI 34.0
--- NOTE | 2024-10-05 09:28 | PC.NURSE ---
Report to the Outpatient Waiting Room, entrance under the green pavilion located off [facility], at time _1230_ on date _[id number]_. Planned Procedure Time: _230pm_.? Time changes happen often and if your time is changed the preop area will call you the afternoon before. - You and your visitor will be asked to self-screen and do not enter if you have any COVID symptoms. Please call surgeon if you need to reschedule. - A mask is optional within the hospital at this time. Patients may have clear liquids (water, carbonated beverages, clear teas, apple juice) until 3 hours prior to surgery with a maximum of 20 ounces. - No food from midnight until time of surgery and no smoking, or chewing tobacco (or any form of nicotine). No chewing gum, candy or mints. Take only the following medications with a SIP of water on the morning of surgery: ___Liothyronine____ DO NOT STOP ANY OF YOUR OTHER PRESCRIPTION MEDICATIONS PRIOR TO SURGERY EXCEPT THE FOLLOWING Hold all vitamins and supplements for 3 days per anesthesiologist. Medications to discontinue per physician Date to take last [id number]__[id number]___ Please no make-up, nail armenian, hairspray, perfume, deodorant, or body powder the day of surgery.? No jewelry (including any body piercings) or valuables the day of surgery, leave them at home.? Please take a shower or bath the night before, or the morning of, surgery with an antibacterial soap.? Wear comfortable, loose fitting clothing.? - Jewelry must be removed prior to entering the operating room.? Rings and piercings that are not removed may be cut off. - The hospital will not accept responsibility for valuables.? - Please leave all valuables, including medications, at home the day of surgery. If you are going home after surgery, a licensed cpr ambulance driver must drive you home.? - NO public transportation without another adult if you receive anesthesia. - We recommend that an adult stay with you for 24 hours following discharge. - We also recommend that you do not drive, make important decision, drink alcoholic beverages, or take any drugs that were not prescribed by your health care provider for at least 24 hours after your discharge time. Follow any additional instructions given to you from your surgeon. Telephone instructions given to __Sally__and asked if any additional questions and then verbalized understanding. Patient advised to call surgeon office or pre surgery nurse liaison [phone] if any additional questions.
--- OUTSIDE RECORDS SUMMARY | 2024-10-10 00:07 | XMS_ITS | Referral Summary ---
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
--- OUTSIDE RECORDS SUMMARY | 2024-10-10 00:07 | XMS_ITS | Clinical Summary ---
Author Organization [facility] Address [address] [place] [address] Care Team Providers Care Tube Machine Operator Name Role Phone Unavailable Primary [...] 30 to 64) Every 3 Years 1979 Colorectal Cancer Screening Colonoscopy (10 Years) 1979 Annual Physical 1982 Hepatitis C 1997 DTaP, Tdap and Td Vaccines ( 1 - Tdap) 1998 Hepatitis B Vaccines (1 of 3 - 19+ 3-dose series) 1998 Cervical Cancer Screening Pa p with HPV Testing (Age 30 to 64) Every 5 Years 2009 Cervical Cancer Screening with HPV 2009 Mammogram Screening 2019 COVID-19 Vaccine (2023-2 5 season) 2024 HPV Vaccines Aged Out No longer eligi ble based on patient's age to complete this topic Meningococcal B Vaccine Aged Out No l onger eligible based on patient's age to complete this topic Meningococcal Vaccine Aged Out No suha jazzmine eligible based on patient's age to complete this topic Pneumococcal Vaccine: Pediat rics (0 to 5 Years) and At-Risk Patients (6 to 49 Years) Aged Out No longer eligible b ased on patient's age to complete this topic RSV Immunizations Under 20 Months Aged Out No longer eligible based on patient's age to complete this topic
--- OUTSIDE RECORDS SUMMARY | 2024-10-10 00:07 | XMS_ITS | Clinical Summary ---
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
--- NOTE | 2024-10-10 12:31 | P.HP_ITS ---
H&P: HPI History of Present Illness Date/Time: 10/10/24 12:31 Chief Complaint: Painful menses Narrative: 43 y/o nulligravida with a history of biopsy-proven endometriosis. She has been managing pelvic pain and dyspareunia with continuous treatment with an oral contraceptive. Her has had a vasectomy. She is now interested in surgical management. She does not desire future childbearing. Review of Systems Review of Systems: All systems reviewed & are unremarkable except as noted in HPI and below PMFSH Past Medical History Medical History Goiter Hearing loss Hyperinsulinemia Endometriosis Diverticulosis Hypothyroidism Thyroid disease Surgical History Surgical History History of laparoscopy x3 for endometriosis History of cholecystectomy 01/2020 History of LEEP (loop electrosurgical excision procedure) of cervix complicating Family History Family History Father Hyperlipemia Brain tumor (benign) Mother Non-Hodgkin lymphoma Unknown Heart disease Hypertension Cancer Social History Social History Social History: 10/01/24 very confident with medical forms Smoking packs per day: 0.5 Smoking cigarettes per day: 10.0 Years smoked: 5 Smoking pack-years: 2.50 Smoking status: Never smoker Tobacco type: cigarettes Additional smoking assessment comments: QUIT 13 YEARS AGO. SMOKED OCCASIONALLY FOR 5 YEARS. 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 Spiritual care concerns: No Meds Home Medications and Allergies Home Medications ?Medication ?Instructions ?Recorded ?Confirmed ?Type cholecalciferol (vitamin D3) 62.5 62.5 mcg PO DAILY 02/04/23 10/08/24 History mcg (2,500 unit) capsule mecobalamin (vitamin B12) 5,000 5,000 mcg PO DAILY 02/04/23 10/08/24 History mcg disintegrating tablet Lactobacillus acidophilus 10 10,000 mmu cells PO DAILY 10/05/24 10/08/24 History billion cell capsule (Probacap) cetirizine 10 mg capsule (All Day 10 mg PO DAILY 10/05/24 10/08/24 History Allergy (cetirizine)) thyroid (pork) 90 mg tablet 90 mg PO DAILY #90 tabs 10/08/24 10/08/24 Rx ([facility] [place] [facility]) Allergies Allergy/AdvReac Type Severity Reaction Status Date / Time benzonatate (From Tessalon AdvReac Mild Itching Verified 10/08/24 11:16 Per[place]) Exam Const: Orientation/consciousness: patient oriented x3 Other: Well-developed, well-nourished female in no acute distress. Neck: Thyroid: thyroid normal Lymphatic: no lymphadenopathy noted (in neck, axilla or inguinal nodes) Resp: Effort & Inspection: normal respiratory effort Auscultation: clear to auscultation bilaterally Cardio: Rate: regular rate Rhythm: regular rhythm Heart sounds: S1 normal heart sound present and S2 normal heart sound present GI: Other: ABD: Soft, nontender, nondistended. No guarding or rebound tenderness. No hepatosplenomegaly. : General: Yes no CVA tenderness Other: External genitalia: normal female hair distribution, without lesion. Urethral meatus: no lesion, non prolapsed. Bladder: no mass, nontender Vagina: well-estrogenized, without lesion or discharge. No cystocele or rectocele. Cervix: no lesion or discharge. Uterus: small, anteverted, freely mobile, nontender Adnexa: no mass or tenderness. Anus/perineum: no lesions, nontender Back/Spine/Pelvis: Back: no CVA tenderness Skin: General skin exam: normal color and no rashes or lesions noted Neuro: General: patient oriented x3 Extrem: Other: Extremities: nontender with no edema Psych: Mental Status: mental status grossly normal Affect: normal affect Assessment and Plan Assessment and plan (1) Dysmenorrhea: Code(s): N94.6 - Dysmenorrhea, unspecified Status: Acute Assessment and Plan: A: Dysmenorrhea, in the setting of endometriosis. P: We have reviewed medical as well as surgical management options, and she is interested in the latter. Specifically, I have offered her hysteroscopy with dilation and sharp curettage and endometrial ablation. She understands risks of surgery to include risks of anesthesia, risks of pain, infection, bleeding, blood products, thromboembolic phenomena and damage to adjacent structures such as bowel, bladder, ureters, blood vessels and nerves. She understands endometrial ablation is not sufficient for contraception . She understands all these risks and elects to proceed with surgery.
[2024-10-10 14:00] VITALS: BP 146/98; PULSE 85; RESP 16; TEMP 36.6; O2SAT 100
[2024-10-10] MEDS: ACETAMINOPHEN 500 MG TABLET 1000 MG PO (14:20)
[2024-10-10] MEDS: KETOROLAC 30 MG/ML VIAL (*BKC) IV PUSH (14:20)
--- NOTE | 2024-10-10 14:43 | P.PNAN_ITS ---
Anes - Initial Pre Proc Eval Procedure: Operation Date: 10/10/24 14:30 Proposed Procedures p Hysteroscopy Dilation and Curettage with Tanisha Endometrial Ablation - Chris Nuno MD Date/Time: 10/10/24 14:43 Surgeon: Chris Nuno MD Pre Op Diagnosis: dysmenorrhea, excessive irregular heavy bleeding Patient Data Age: 44 Gender: F Height: 1.75 m Weight: 106.8 kg Last Vital Signs Temp 36.6 C 10/10/24 14:00 Pulse 85 10/10/24 14:00 Resp 16 10/10/24 14:00 BP 146/98 H 10/10/24 14:00 Pulse Ox 100 10/10/24 14:00 O2 Del Method Room Air 10/10/24 14:00 Allergies Allergy/AdvReac Type Severity Reaction Status Date / Time benzonatate (From Tessalon AdvReac Mild Itching Verified 10/10/24 14:22 Perles) morphine AdvReac Mild Other Verified 10/10/24 14:25 Home Medications ?Medication ?Instructions ?Recorded ?Confirmed ?Type cholecalciferol (vitamin D3) 62.5 62.5 mcg PO DAILY 02/04/23 10/08/24 History mcg (2,500 unit) capsule mecobalamin (vitamin B12) 5,000 5,000 mcg PO DAILY 02/04/23 10/08/24 History mcg disintegrating tablet Lactobacillus acidophilus 10 10,000 mmu cells PO DAILY 10/05/24 10/08/24 History billion cell capsule (Probacap) cetirizine 10 mg capsule (All Day 10 mg PO DAILY 10/05/24 10/08/24 History Allergy (cetirizine)) thyroid (pork) 90 mg tablet 90 mg PO DAILY #90 tabs 10/08/24 10/08/24 Rx ([place] Thyroid) Patient hx anesthesia problems: none Family hx anesthesia problems: none Results Review: All pre-operative results and documents have been reviewed as part of the pre- operative evaluation. [facility] Past Medical History Medical History Goiter Hearing loss Hyperinsulinemia Endometriosis Diverticulosis Hypothyroidism Thyroid disease Surgical History Surgical History History of laparoscopy x3 for endometriosis History of cholecystectomy 01/2020 History of LEEP (loop electrosurgical excision procedure) of cervix complicating Family History Family History Father Hyperlipemia Brain tumor (benign) Mother Non-Hodgkin lymphoma Unknown Heart disease Hypertension Cancer Social History Social History Social History: 10/01/24 very confident with medical forms Smoking packs per day: 0.5 Smoking cigarettes per day: 10.0 Years smoked: 5 Smoking pack-years: 2.50 Smoking status: Never smoker Tobacco type: cigarettes Additional smoking assessment comments: QUIT 13 YEARS AGO. SMOKED OCCASIONALLY FOR 5 YEARS. 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 Informed Consent: The patient's anesthetic plan and its attendant risks and benefits were discussed with the patient/family/POA. Questions were solicited and answers provided to the satisfaction of the patient/family/POA.
--- NOTE | 2024-10-10 15:19 | WPDHPUPDATE1 ---
History and Physical Update Update Date/Time: 10/10/24 15:19 History and Physical has been reviewed, including an updated exam of the patient. There are NO changes in the patient's condition. Risks, benefits, and alternatives have been discussed and questions answered. Patient agrees to proceed with procedure.
[2024-10-10] MEDS: LIDOCAINE 1% LOCAL INJ 10 ML VIAL INFILTRATE (15:40)
--- NOTE | 2024-10-10 15:46 | SUR.OPER ---
Fluid Deficit 130
--- NOTE | 2024-10-10 15:49 | W.PM.PROC2 ---
Procedure Note - Detailed Date of Procedure 10/10/24 Pre-op Diagnosis Dysmenorrhea Post-op Diagnosis Same Procedure Performed Hysteroscopy Dilation and sharp curettage Endometrial ablation Surgeon Chris Nuno MD Anesthesia General and Local (1% lidocaine) Findings Unremarkable endometrial cavity. Both tubal ostia seen. Description of Procedure The patient was taken to the operating room where she was prepared and draped in the usual sterile fashion in the dorsal lithotomy position. The bladder was drained with a red rubber catheter. A sterile speculum was placed into the vagina. The anterior lip of the cervix was grasped with single-tooth tenaculum. Ten mL of 1% lidocaine was administered in a paracervical block. The cervix was then gently dilated using Hegar dilators until a 7 mm dilator could be passed. Hysteroscopy was performed using sterile saline as a distention medium. Findings are as noted above. Sharp curettage was then performed, and endometrial curettings were collected on a Telfa pad and passed off to be sent to pathology. Finally, the the Tanisha device was advanced and endometrial ablation commenced without difficulty. The device was withdrawn and a second look was taken using the hysteroscope. Excellent coverage of the endometrial cavity was noted. The tenaculum was removed. Hemostasis was excellent. Sponge, lap, needle and instrument counts were correct. The patient was awakened and taken to the recovery room in stable condition. I was present and scrubbed through the entire procedure. Implants None Estimated Blood Loss 10 Drains No Packing No Pathology Yes (Endometrial curettings) Complications None Condition Stable Disposition PACU
[2024-10-10 15:52] VITALS: BP 121/80; PULSE 83; RESP 14; O2SAT 95
[2024-10-10] MEDS: LACTATED RINGERS 1,000 ML 30 ML IV CONT (15:52)
[2024-10-10 16:15] VITALS: BP 139/79; PULSE 64; RESP 20
[2024-10-10] MEDS: oxyCODONE HCL (*CRX) 5 MG TAB IR PO (16:21)
[2024-10-10 16:45] VITALS: BP 173/90; PULSE 64; RESP 20
== END 2024-10-10 16:56 | disposition home or self-care (01) ==
PROVIDERS: PCP Physician Assistant Medical; Visit Provider Obstetrics & Gynecology
PROC: 0U5B8ZZ Destruction of Endometrium, Via Natural or Artificial Opening Endoscopic (ICD-10-PCS; CPT 58563; principal; 2024-10-10 14:30)
DX: N85.01 Benign endometrial hyperplasia (principal); N94.6 Dysmenorrhea, unspecified; R10.2 Pelvic and perineal pain; Z87.891 Personal history of nicotine dependence; E66.9 Obesity, unspecified; Z68.34 Body mass index [BMI] 34.0-34.9, adult
CPT/HCPCS: 58563; 88305; A9270; J1100; J1885; J2003; J2250; J2405; J2704; J3010; J7120